=== PATIENT | female | born 1970 | race Hispanic/Latino ===

== ENCOUNTER 2022-08-15 14:27 | Observation (INO) | payer MEDICAID ==
[~2022-08-15] VITALS: Ht 152.4 cm; Wt 111.1 kg
[2022-08-15] MEDS ORDERED: 0.9%NACL 50ML IV SCH ×2 (16:00→16:30)
[2022-08-15] MEDS ORDERED: ACETAMINOPHEN 325 MG TAB PO PRN (16:30)
[2022-08-15] MEDS ORDERED: KETOROLAC 15MG/ML VIAL (15MG/ML) IV PRN ×2 (16:30→17:00)
[2022-08-15] MEDS ORDERED: ZOSYN 3.375GM +NS 50ML IVPB SCH (16:30)
[2022-08-15 16:51] LABS: BASOPHILS % (AUTO) 0.4 % (0.0-5.0); HEMATOCRIT 45.2 % (36-48); LYMPHOCYTES % (AUTO) 35.2 % (21.0-51.0); MEAN CORPUSCULAR HEMOGLOBIN 28.4 pg (27.0-33.0); MEAN CORPUSCULAR HGB CONC 32.7 g/dL (32.0-36.0); MEAN CORPUSCULAR VOLUME 86.8 fL (79-99); MONOCYTES % (AUTO) 7.6 % (3.0-13.0); NEUTROPHILS % (AUTO) 55.7 % (40.0-77.0); PLATELET COUNT (AUTO) 238 K/uL (130-400); RED BLOOD CELL COUNT(AUTO) 5.21 MIL/uL (4.00-5.50); RED CELL DISTRIBUTION WIDTH 13.2 % (11.0-15.5); WHITE BLOOD COUNT (AUTO) 6.9 K/uL (4.8-10.8)
[2022-08-15] MEDS: LEVOFLOXACIN 500 MG/D5W 100 ML 100 ML IV SCH (16:53)
[2022-08-15] MEDS: 0.9%NACL 1000ML 1,000 ML IV SCH (16:54)
[2022-08-15 17:00] LABS: CREATININE 0.6 mg/dL (0.5-1.5); POTASSIUM 3.6 mmol/L (3.5-5.1)
[2022-08-15] MEDS ORDERED: ALPRAZOLAM 0.5 MG TABLET PO PRN (17:00)
[2022-08-15 17:04] LABS: ALBUMIN 3.7 g/dL (3.5-5.0); MAGNESIUM 1.7 mg/dL (1.80-2.40); TOTAL PROTEIN, SERUM 7.3 g/dL (6.0-8.3)
[2022-08-15 17:19] VITALS: BP 145/72
[2022-08-15] MEDS: ONDANSETRON 4MG INJ IVP PRN (18:14)
[2022-08-15] MEDS ORDERED: LEVO150C2 PO (19:01)
[2022-08-15] MEDS ORDERED: MONT-46 PO (19:01)
[2022-08-15] MEDS ORDERED: ATEN25TA PO (19:01)
[2022-08-15 20:05] VITALS: BP 120/76
[2022-08-15] MEDS ORDERED: ALPR0.5T PO (20:54)
[2022-08-15] MEDS ORDERED: ATENOLOL 25 MG TABLET PO SCH (21:00)
[2022-08-15] MEDS: METRONIDAZOLE 500MG/100ML BAG 100 ML IVPB SCH (21:57)
[2022-08-15] MEDS: ALPRAZOLAM 0.5 MG TABLET PO PRN (21:57)
[2022-08-15 23:51] VITALS: BP 113/56
[2022-08-16] VITALS (23 sets, daily range): BP systolic 122–165; BP diastolic 55–98
[2022-08-16] MEDS: METRONIDAZOLE 500MG/100ML BAG 100 ML IVPB SCH ×3 (05:52→20:21)
[2022-08-16] MEDS ORDERED: ATENOLOL 25 MG TABLET PO SCH ×2 (09:00→21:00)
[2022-08-16] MEDS: 0.9%NACL 1000ML 1,000 ML IV SCH ×2 (09:08→17:34)
[2022-08-16] MEDS: ONDANSETRON 4MG INJ IVP PRN (09:08)
[2022-08-16] MEDS ORDERED: ACETAMINOPHEN WITH CODEINE 1 TAB TAB PO PRN (09:30)
[2022-08-16] MEDS ORDERED: ONDANSETRON 4MG INJ ONE ×2 (09:56→10:18)
[2022-08-16] MEDS ORDERED: SUCCINYLCHOLINE 200MG/10ML SYR ONE (09:56)
[2022-08-16] MEDS ORDERED: LIDOCAINE PF 100MG/5ML (2%) SYRINGE 5ML ONE (09:56)
[2022-08-16] MEDS ORDERED: DEXAMETHASONE SOD PHOSPHATE 10MG/ML 1ML VIAL ONE (09:57)
[2022-08-16] MEDS ORDERED: ROCURONIUM 10MG/1ML SYR 10 MG/ML ML ONE (09:57)
[2022-08-16] MEDS ORDERED: PROPOFOL 10 MG/ML 20ML VIAL IV ONE ×3 (09:57→11:39)
[2022-08-16] MEDS ORDERED: MIDAZOLAM HCL 1 MG/ML 2ML VIAL ONE ×2 (09:57→10:16)
[2022-08-16] MEDS ORDERED: GLYCOPYRROLATE 1 MG/5 ML SYRINGE ONE ×2 (09:57→12:52)
[2022-08-16] MEDS ORDERED: FENTANYL CITRATE PF 50 MCG/1 ML 2ML VIAL ONE ×4 (09:57→12:34)
[2022-08-16] MEDS ORDERED: NEOSTIGMINE 5MG/5ML SYR IV ONE ×2 (09:57→12:51)
[2022-08-16] MEDS ORDERED: LACTATED RINGERS 1000ML 1,000 ML IV ONE (10:50)
[2022-08-16] MEDS ORDERED: LIDOCAINE HCL 1% 10 ML VIAL ONE (10:51)
[2022-08-16] MEDS ORDERED: BUPIVACAINE/PF 0.5% 10ML VIAL ONE (10:52)
[2022-08-16] MEDS ORDERED: BUPIVACAINE/PF 0.25% 10ML VIAL IJ ONE (11:31)
[2022-08-16] MEDS ORDERED: ESMOLOL HCL 10 MG/ML 10 ML VIAL ONE (12:03)
[2022-08-16] MEDS: SIMETHICONE 80 MG TAB.CHEW PO SCH ×3 (13:00→20:21)
[2022-08-16] MEDS ORDERED: MEPERIDINE-PF 25 MG/ML SYG ONE (13:25)
[2022-08-16] MEDS: LEVOFLOXACIN 500 MG/D5W 100 ML 100 ML IV SCH (16:57)
[2022-08-16] MEDS: ACETAMINOPHEN WITH CODEINE 1 TAB TAB PO PRN (16:57)
[2022-08-16] MEDS: ALPRAZOLAM 0.5 MG TABLET PO PRN (20:20)
[2022-08-17] VITALS: BP 123/72
[2022-08-17 04:00] VITALS: BP 107/63
[2022-08-17] MEDS: METRONIDAZOLE 500MG/100ML BAG 100 ML IVPB SCH (05:18)
[2022-08-17] MEDS: ACETAMINOPHEN WITH CODEINE 1 TAB TAB PO PRN ×2 (05:21→15:08)
[2022-08-17 05:27] LABS: BASOPHILS % (AUTO) 0.1 % (0.0-5.0); HEMATOCRIT 42.3 % (36-48); LYMPHOCYTES % (AUTO) 14.4 % (21.0-51.0); MEAN CORPUSCULAR HEMOGLOBIN 28.7 pg (27.0-33.0); MEAN CORPUSCULAR HGB CONC 32.2 g/dL (32.0-36.0); MEAN CORPUSCULAR VOLUME 89.2 fL (79-99); MONOCYTES % (AUTO) 9.4 % (3.0-13.0); NEUTROPHILS % (AUTO) 75.8 % (40.0-77.0); PLATELET COUNT (AUTO) 209 K/uL (130-400); RED BLOOD CELL COUNT(AUTO) 4.74 MIL/uL (4.00-5.50); RED CELL DISTRIBUTION WIDTH 13.3 % (11.0-15.5); WHITE BLOOD COUNT (AUTO) 10.7 K/uL (4.8-10.8)
[2022-08-17 06:01] LABS: ALBUMIN 3.2 g/dL (3.5-5.0); BILIRUBIN,DIRECT 0.1 mg/dL (0.0-0.3); CREATININE 0.7 mg/dL (0.5-1.5); MAGNESIUM 1.5 mg/dL (1.80-2.40); POTASSIUM 3.8 mmol/L (3.5-5.1); TOTAL PROTEIN, SERUM 6.6 g/dL (6.0-8.3)
[2022-08-17] MEDS: ALPRAZOLAM 0.5 MG TABLET PO PRN (06:14)
[2022-08-17 08:00] VITALS: BP 122/68
[2022-08-17] MEDS ORDERED: MAGNESIUM 2GM PREMIX 50ML 50 ML IV SCH (08:30)
[2022-08-17] MEDS: SIMETHICONE 80 MG TAB.CHEW PO SCH ×2 (09:06→12:17)
[2022-08-17 11:51] VITALS: BP 109/66
[2022-08-17] MEDS ORDERED: LEVO-70 PO (15:12)
[2022-08-17 16:00] VITALS: BP 114/64
== END 2022-08-17 19:00 | disposition home or self-care (01) ==
LOC: 3DH 15:20
PROVIDERS: ADMIT Internal Medicine; ATTEND Internal Medicine
DX: K80.00 Calculus of gallbladder with acute cholecystitis without obstruction (principal); Z20.822 Contact with and (suspected) exposure to COVID-19; N39.0 Urinary tract infection, site not specified; K66.0 Peritoneal adhesions (postprocedural) (postinfection); E03.9 Hypothyroidism, unspecified; F41.8 Other specified anxiety disorders; E66.9 Obesity, unspecified; M79.7 Fibromyalgia; E11.9 Type 2 diabetes mellitus without complications; F12.20 Cannabis dependence, uncomplicated; Z90.710 Acquired absence of both cervix and uterus; Z88.0 Allergy status to penicillin; Z79.899 Other long term (current) drug therapy
CPT/HCPCS: 96365; 96375; 96367 ×2; 83735 ×2; 80053; 85025 ×2; 36415 ×2; 47562; 96376; 96366 ×2; 88304; 87635; 80076; 80048; G0378 ×50; G0379; J1956 ×3; J2405 ×4; J3490 ×12; J7030; J7120 ×2; A4215; J3010 ×4; J0330; J1100; J2710 ×2; J2250 ×2; S0020; J2175; A6206; C1769 ×3; A4649 ×3; A4223; A4222; A4216; A4600; J3475; J2001; J2704